=== PATIENT | female | born 1985 | race Caucasian/White ===

== ENCOUNTER 2017-06-14 21:30 | Emergency (ER) | payer BC ==
[2017-06-14 21:39] VITALS: BP 134/80
[2017-06-14] MEDS ORDERED: Ketorolac INJ* 60 MG/2 ML VIAL IM ONE (22:09)
[2017-06-14] MEDS ORDERED: Silver Sulfadiazine 1%* 20 GM TOPICAL ONE (22:10)
--- NOTE | 2017-06-14 22:16 | ED ---
Burn - HPI Summary HPI Summary: 32F presents with burning on left foot today. She states she dropped some hot water on left foot. States she is wearing a sock in the area when dropped the water. She states pain is 10 out of 10. She hasn't taking anything for his symptoms. The burn is located only on the top of her foot. She denies any other injury. She denies any numbness or tingling. She has no medical conditions. Pain is worse when it is touched. The burn happened half an hour prior to arrival. - History of Current Complaint Chief Complaint: EDBurnSmokeInh Stated Complaint: BURN ON LT FOOT Time Seen by Provider: 06/14/17 21:46 Pain Intensity: 9 - Allergy/Home Medications Allergies/Adverse Reactions: Allergies Allergy/AdvReac Type Severity Reaction Status Date / Time No Known Allergies Allergy Verified 06/14/17 21:36 Home Medications: Home Medications Escitalopram (NF) [Lexapro 10 mg (NF)] 15 mg PO DAILY 06/14/17 [History Confirmed 06/14/17] buPROPion TAB* [Wellbutrin TAB*] 100 mg PO BID 06/14/17 [History Confirmed 06/14] PMH/Surg Hx/FS Hx/Imm Hx Endocrine/Hematology History: Denies: Hx Anticoagulant Therapy Cardiovascular History: Denies: Hx Myocardial Infarction Infectious Disease History: No Infectious Disease History: Denies: Traveled Outside the [place] in Last 30 Days - Family History Known Family History: Negative: Diabetes - Social History Lives: With Family Smoking Status (MU): Never Smoked Tobacco Review of Systems Negative: Fever Negative: Chest Pain Negative: Shortness Of Breath Positive: Other - burn left foot All Other Systems Reviewed And Are Negative: Yes Physical Exam Triage Information Reviewed: Yes Vital Signs On Initial Exam: Initial Vitals Temp Pulse Resp BP Pulse Ox 97.8 F 79 18 134/80 98 06/14/17 21:36 06/14/17 21:36 06/14/17 21:36 06/14/17 21:36 06/14/17 21:36 Vital Signs Reviewed: Yes Appearance: Positive: Well-Appearing Skin: Positive: Warm, Dry, Other - 4cm by 3 cm second-degree burn on the top of left foot with small blisters, non-circumferential Head/Face: Positive: Normal Head/Face Inspection Eyes: Positive: Normal, Conjunctiva Clear Respiratory/Lung Sounds: Positive: Clear to Auscultation, Breath Sounds Present Cardiovascular: Positive: Normal, RRR Musculoskeletal: Positive: Strength/ROM Intact - Left foot, Other - Cap refill less than 2 seconds, good pulses. Negative: Edema Left Neurological: Positive: Normal Psychiatric: Positive: Normal Burn Calculation - Left Leg 18% Left Leg 2nd De - Total 2nd Deg Total: 1 Total % BSA: 1 - [place] Formula for Fluid Resuscitation Weight: 190 lb Total % BSA 2nd & 3rd Degree: 1 24 -Hour Fluid Replacement: 344.7 Diagnostics - Vital Signs Vital Signs Temp Pulse Resp BP Pulse Ox 06/14/17 21:36 97.8 F 79 18 134/80 98 - Laboratory Lab Statement: Any lab studies that have been ordered have been reviewed, and results considered in the medical decision making process. Burn Course/Dx - Course Course Of Treatment: 32F presents with burning on left foot today. She states she dropped some hot water on left foot. States she is wearing a sock in the area when dropped the water. She states pain is 10 out of 10. She hasn't taking anything for his symptoms. The burn is located only on the top of her foot. She denies any other injury. She denies any numbness or tingling. She has no medical conditions. Pain is worse when it is touched. The burn happened half an hour prior to arrival. On exam has pretty centimeter by 4 cm second degree burn with blisters. Full range of motion of the foot. No edema. Sensation grossly intact. Capillary refill less than [address] Silvadene on the area and wrapped area. Told to watch for any signs of infection. We'll give some pain medication. Patient understands agrees with plan. - Diagnoses Differential Diagnoses: Positive: Chemical Burn, Direct Contact Thermal Burn, Ultraviolet Burn Provider Diagnosis: Burn of left foot Discharge - Sign-Out/Discharge Documenting (check all that apply): Discharge - Discharge Plan Condition: Good Disposition: HOME Prescriptions: traMADol TAB* [Ultram*] 25 mg PO Q6HR PRN #12 tab MDD 4 PRN Reason: Pain Patient Education Materials: Second Degree Burn (ED) Referrals: No Primary Care Phys,NOPCP [Primary Care Provider] - [facility] [place] [facility] [Outside] Additional Instructions: Apply silvadene cream to area once a day and cover area Take ibuprofen for pain every 6 hour use narcotic for break through pain Establish care with primary for follow up Return to ED if develop fever, spreading redness, or any new or worsening symptoms - Billing Disposition and Condition Condition: GOOD Disposition: HOME
[2017-06-14] MEDS ORDERED: I buprofen 600 MG #6 TAB PREPK 600 MG TAB PO ONE (22:57)
== END 2017-06-14 23:18 | disposition home or self-care (01) ==
LOC: ED 21:30
DX: T25.222A Burn of second degree of left foot, initial encounter (principal); X11.8XXA Contact with other hot tap-water, initial encounter; Y92.9 Unspecified place or not applicable
CPT/HCPCS: 96372; 99281; A9270-GY; J1885

== ENCOUNTER 2017-12-28 16:01 | Emergency (ER) | payer BC, OTHER ==
[2017-12-28] MEDS ORDERED: Ketorolac INJ* 30 MG/ML 1 ML VIAL IM ONE (16:46)
--- NOTE | 2017-12-28 16:49 | ED ---
GI/ HPI - HPI Summary HPI Summary: 32 year old female presents with right flank pain for the past week. States that started as right lower quadrant pain and move to her right side of her back. She states occasionally goes to her RUQ. She states that she noticed one spot of her rash on the area. She states that she was seen in urgent care and had a negative x-ray and urine. She's been treated ibuprofen which has been helping the pain. States movement makes the pain worse. No injury. No loss of bowel or bladder. No saddle anesthesia. No fevers. No nausea and vomiting. She admits some constipation. No diarrhea. She has no pain with food. She denies any chest pressure or shortness of breath. She is not on control. No family history of blood clots. No recent illness or cough. She states the pain is a dull burning sensation that feels deep. She has been no medical conditions. She is also concerned because her mom has history of MS and would like to be worked up for MS outpatient. she has had her appendix removed. - History of Current Complaint Chief Complaint: EDAbdPain Time Seen by Provider: 12/28/17 16:34 Stated Complaint: ABDAND BACK PAIN Pain Intensity: 6 - Allergy/Home Medications Allergies/Adverse Reactions: Allergies Allergy/AdvReac Type Severity Reaction Status Date / Time No Known Allergies Allergy Verified 12/28/17 16:38 PMH/Surg Hx/FS Hx/Imm Hx Endocrine/Hematology History: Denies: Hx Anticoagulant Therapy Cardiovascular History: Denies: Hx Myocardial Infarction - Immunization History Immunizations Up to Date: Yes Infectious Disease History: No Infectious Disease History: Denies: Traveled Outside the [place] in Last 30 Days - Family History Known Family History: Positive: Other - MS - Social History Alcohol Use: Occasionally Substance Use Type: Reports: None Smoking Status (MU): Never Smoked Tobacco Review of Systems Negative: Fever Negative: Chest Pain Negative: Shortness Of Breath Positive: Abdominal Pain Positive: flank pain. Negative: dysuria All Other Systems Reviewed And Are Negative: Yes Physical Exam Triage Information Reviewed: Yes Vital Signs On Initial Exam: Initial Vitals Temp Pulse Resp BP Pulse Ox 98.6 F 74 20 128/80 98 12/28/17 16:05 12/28/17 16:05 12/28/17 16:05 12/28/17 16:05 12/28/17 16:05 Vital Signs Reviewed: Yes Appearance: Positive: Well-Appearing Skin: Positive: Warm, Dry, Other - pimple to right flank, 2cm by 3cm patch of erythema to right flank that is not warm to touch Head/Face: Positive: Normal Head/Face Inspection Eyes: Positive: Normal, EOMI, JEFFERY, Conjunctiva Clear ENT: Positive: Normal ENT inspection, Pharynx normal, TMs normal Respiratory/Lung Sounds: Positive: Clear to Auscultation, Breath Sounds Present Cardiovascular: Positive: Normal, RRR Abdomen Description: Positive: Soft, CVA Tenderness (R), Other: - tenderness RUQ , neg wells Bowel Sounds: Positive: Present Musculoskeletal: Positive: Normal Neurological: Positive: Normal Psychiatric: Positive: Normal Diagnostics - Vital Signs Vital Signs Temp Pulse Resp BP Pulse Ox 12/28/17 16:37 77 149/81 98 12/28/17 16:36 72 98 12/28/17 16:05 98.6 F 74 20 128/80 98 - Laboratory Result Diagrams: 12/28/17 17:02 12/28/17 17:02 Lab Statement: Any lab studies that have been ordered have been reviewed, and results considered in the medical decision making process. - Ultrasound No standard instances Ultrasound Interpretation Completed By: Radiologist Summary of Ultrasound Findings: IMPRESSION: #. Negative for obstructive uropathy. #. Hepatosteatosis. GIGU Course/Dx - Course Course Of Treatment: 32 year old female presents with right flank pain for the past week. States that started as right lower quadrant pain and move to her right side of her back. She states occasionally goes to her RUQ. She states that she noticed one spot of her rash on the area. She states that she was seen in urgent care and had a negative x-ray and urine. She's been treated ibuprofen which has been helping the pain. States movement makes the pain worse. No injury. No loss of bowel or bladder. No saddle anesthesia. No fevers. No nausea and vomiting. She admits some constipation. No diarrhea. She has no pain with food. She denies any chest pressure or shortness of breath. She is not on control. No family history of blood clots. No recent illness or cough. She states the pain is a dull burning sensation that feels deep. She has been no medical conditions. on exam tenderness right flank. mild tenderness RUQ. wbc normal. crp normal. d-dimer neg. urine consistent with her period. renal u/s normal. discussed likely muscular so will place on course of muscle relaxer. patient understand and agrees with plan. - Diagnoses Differential Diagnoses - Female: Urinary Tract Infection, Ureteral Calculi, Other - PE Provider Diagnoses: Flank pain Discharge - Sign-Out/Discharge Documenting (check all that apply): Patient Departure - Discharge Plan Condition: Good Disposition: HOME Prescriptions: Methocarbamol TAB* [Robaxin 500 MG TAB*] 500 mg PO TID PRN #21 tab PRN Reason: Pain Patient Education Materials: Flank Pain (ED) Referrals: [facility] [place] [Outside] [facility] [place] [facility] [Outside] Additional Instructions: Take muscle relaxers three times a day Use ibuprofen or Tylenol for pain every 6 hours ice/heat area, move as much as possible est care with primary Return to ED if develop any new or worsening symptoms - Billing Disposition and Condition Condition: GOOD Disposition: Home
[2017-12-28 17:10] LABS: ABS Basophils 0 10^3/ul (0-0.2); ABS Eosinophils 0.1 10^3/ul (0-0.6); ABS Lymphocytes 1.6 10^3/ul (1.0-4.8); ABS Monocytes 0.5 10^3/ul (0-0.8); ABS Neutrophils 3.9 10^3/ul (1.5-7.7); ABS Nucleated RBC 0 10^3/ul; Eosinophil % 2.3 % (0-6); Hematocrit 38 % (35-47); Hemoglobin 12.8 g/dl (12.0-16.0); Lymphocyte % 26.3 % (25-47); Mean Corpuscular HGB Conc 34 g/dl (31-36); Mean Corpuscular Hemoglobin 31 pg (27-31); Mean Corpuscular Volume 90 fL (80-97); Mean Platelet Volume 7.9 um3 (7.4-10.4); Nucleated Red Blood Cells % 0.1; Platelet Count 260 10^3/ul (150-450); Red Blood Count 4.19 10^6/ul (4.00-5.40); Red Cell Distribution Width 13 % (10.5-15); White Blood Count 6.2 10^3/ul (3.5-10.8)
[2017-12-28 17:20] LABS: Urine Appearance Clear; Urine Blood 2+ (Negative); Urine Color Yellow; Urine Ketones Negative (Negative); Urine Protein Negative (Negative); Urine Red Blood Cell Absent (Absent); Urine Specific Gravity 1.012 (1.010-1.030); Urine Urobilinogen Negative (Negative); Urine White Blood Cell Absent (Absent)
--- NOTE | 2017-12-28 17:31 | RAD ---
Indication: RIGHT flank pain. Comparison: No relevant prior exams available on the [facility] for comparison. Technique: Renal ultrasound. Report: 12.0 x 4.9 x 5.1 cm RIGHT kidney demonstrates normal cortical echogenicity. No conspicuous stones or hydronephrosis. Negative for focal is. 11.4 x 5.8 x 5.1 cm LEFT kidney demonstrates normal cortical echogenicity. No conspicuous stones or hydronephrosis. 1.5 cm simple cyst at the cortical medullary junction at the lower pole. Increased echogenicity of the liver consistent with hepatosteatosis. IMPRESSION: #. Negative for obstructive uropathy. #. Hepatosteatosis.
[2017-12-28 18:22] VITALS: BP 133/70
== END 2017-12-28 18:20 | disposition home or self-care (01) ==
LOC: ED 16:01
DX: M54.5 Low back pain (principal); R10.31 Right lower quadrant pain; K76.0 Fatty (change of) liver, not elsewhere classified
CPT/HCPCS: 36415; 76775; 80053; 81003; 81015; 83690; 84702; 85025; 85379; 86140; 96372; 99282; J1885